=== PATIENT | male | born 1950 | race Caucasian/White ===

== ENCOUNTER 2018-06-24 13:33 | Emergency (ER) | payer MEDICARE ==
[~2018-06-24] VITALS: Ht 180.3 cm; Wt 93.4 kg
[2018-06-24 14:10] LABS: BASOPHILS % 0.7 % (0.0-1.0); EOSINOPHILS # (AUTO) 0.1 (0.0-0.4); EOSINOPHILS % 2.3 % (0.0-6.0); HEMATOCRIT 42.7 % (38.2-49.6); HEMOGLOBIN 14.1 g/dL (14.0-18.0); LYMPHOCYTES # (AUTO) 2.3 (1.0-3.2); MEAN CORPUSCULAR HEMOGLOBIN 28.1 pg (28-32); MEAN CORPUSCULAR VOLUME 85.2 fL (81-99); MONOCYTES # (AUTO) 0.5 (0.2-0.8); MONOCYTES % 7.5 % (4.4-11.3); NEUTROPHILS # (AUTO) 3.2 (2.1-6.9); NEUTROPHILS % 52.3 % (38.7-80.0); PLATELET COUNT 194 x10e3/uL (140-360); RED BLOOD COUNT 5.01 x10e6/uL (4.3-5.7); RED CELL DISTRIBUTION WIDTH 12.8 % (11.7-14.4)
[2018-06-24 14:20] LABS: INR 1.1; PROTHROMBIN TIME 13.4 seconds (11.9-14.5)
--- NOTE | 2018-06-24 14:24 | Diagnostic Imaging Report ---
PROCEDURE:X-RAY RIGHT ANKLE, COMPLETE TECHNIQUE:AP, oblique, and lateral radiographs of the right ankle. INDICATION:Right ankle pain COMPARISON:None. FINDINGS: No fractures or dislocations. Mild degenerative changes of the midfoot. Tiny posterior calcaneal enthesophyte. Soft tissues are unremarkable. CONCLUSION: No acute osseous abnormalities. Dictated by: Fabian Sullivan M.D. on 06/24/2018 at 14:29 Electronically approved by: Fabian Sullivan M.D. on 06/24/2018 at 14:29
[2018-06-24 14:29] LABS: BLOOD UREA NITROGEN 22 mg/dL (7-26)
[2018-06-24 15:02] LABS: ALANINE AMINOTRANSFERASE 19 IU/L (0-55); ALBUMIN 4.1 g/dL (3.5-5.0); ALBUMIN/GLOBULIN RATIO 1.4 (0.8-2.0); ALKALINE PHOSPHATASE 81 IU/L (40-150); ANION GAP 13.2 mmol/L (8-16); BUN/CREATININE RATIO 19 (6-25); CALCIUM 9.4 mg/dL (8.4-10.2); CARBON DIOXIDE 25 mmol/L (22-29); CHLORIDE 106 mmol/L (98-107); CREATININE, SERUM 1.18 mg/dL (0.72-1.25); EST GLOMERULAR FILTRATION RATE > 60 ML/MIN (60-); GLUCOSE 93 mg/dL (74-118); POTASSIUM 4.2 mmol/L (3.5-5.1); SODIUM 140 mmol/L (136-145)
[2018-06-24 15:45] VITALS: BP 121/70
== END 2018-06-24 15:55 | disposition home or self-care (01) ==
LOC: ER 13:33
DX: M25.571 Pain in right ankle and joints of right foot (principal); M79.661 Pain in right lower leg; S86.011A Strain of right Achilles tendon, initial encounter; S86.111A Strain of other muscle(s) and tendon(s) of posterior muscle group at lower leg level, right leg, initial encounter; E07.9 Disorder of thyroid, unspecified
CPT/HCPCS: 36415; 80053; 85025; 85610; 85730; 93971; 99284